=== PATIENT | male | born 1965 | race African-American/Black ===

== ENCOUNTER 2022-09-30 02:39 | Inpatient (IN) | payer MEDICAID, OTHER ==
[~2022-09-30] VITALS: Ht 185.4 cm; Wt 72.6 kg
[2022-09-30 03:22] LABS: BASOPHILS % 0.4 % (0.0-2.0); EOSINOPHILS % 0.1 % (0.0-5.0); HEMATOCRIT. 40.5 % (42.0-52.0); HEMOGLOBIN. 13.7 g/dL (14.0-18.0); LYMPHOCYTES % 22.1 % (20.0-50.0); MEAN CORPUSCULAR HEMOGLOBIN 31.3 pg (28.0-32.0); MEAN CORPUSCULAR VOLUME 92.6 fL (80.0-94.0); MONOCYTES % 6.5 % (2.0-8.0); NEUTROPHILS % 70.9 % (40.0-76.0); PLATELET 294 x1000/uL (130-400); RED BLOOD CELL COUNT 4.37 mill/uL (4.7-6.1); RED CELL DISTRIBUTION WIDTH 17.5 % (11.6-14.6)
[2022-09-30 03:26] LABS: PROTHROMBIN TIME 10.6 sec (9.6-11.0)
[2022-09-30 03:28] LABS: CHLORIDE 110 mEq/L (98-107)
[2022-09-30 03:38] LABS: ETHANOL BLOOD < 10 mg/dL
[2022-09-30] MEDS ORDERED: NITROGLYCERIN OINT 1GM/INCH UDPKT TD ONE (04:30)
[2022-09-30] MEDS ORDERED: FUROSEMIDE 40MG/4ML VIAL IV NR (04:30)
[2022-09-30] MEDS ORDERED: ONDANSETRON HCL 4MG/2ML INJ IV PRN (07:15)
[2022-09-30] MEDS ORDERED: GUAIFENESIN 200MG/10ML SUGAR FREE UDC PO PRN (07:15)
[2022-09-30] MEDS ORDERED: NITROGLYCERIN 0.4MG TABLET SL SL PRN (07:15)
[2022-09-30] MEDS ORDERED: MAGNESIUM/ALUMINUM HYDROXIDE/SIMETHICONE 30ML UDC PO PRN (07:15)
[2022-09-30] MEDS ORDERED: ACETAMINOPHEN 325MG TABLET PO PRN ×2 (07:15)
[2022-09-30] MEDS ORDERED: KETOROLAC 15MG/ML VIAL IV PRN (07:15)
[2022-09-30] MEDS ORDERED: CLONIDINE 0.1MG TABLET PO PRN (07:15)
[2022-09-30] MEDS ORDERED: NA PHOS,M-B/NA PHOS,DI-BA ENEMA 118ML PR PRN (07:15)
[2022-09-30] MEDS ORDERED: DOCUSATE SODIUM 100MG CAPSULE PO PRN (07:15)
[2022-09-30] MEDS ORDERED: IPRATROPIUM/ALBUTEROL 0.5-3(2.5)MG/3ML NEB NEB PRN (07:15)
[2022-09-30] MEDS: AMLODIPINE 10MG TABLET PO SCH (09:32)
[2022-09-30] MEDS: FUROSEMIDE 40MG/4ML VIAL IVP SCH ×2 (09:32→18:36)
[2022-09-30] MEDS: ASPIRIN 325MG EC TABLET PO SCH (09:32)
[2022-09-30] MEDS: ENOXAPARIN 40MG/0.4ML SYR SUBCUT SCH (09:32)
[2022-09-30] MEDS: FAMOTIDINE 20MG TABLET PO SCH ×2 (09:32→20:58)
[2022-09-30] MEDS: SPIRONOLACTONE 25MG TABLET PO SCH ×2 (09:33→20:59)
[2022-09-30] MEDS: LOSARTAN POTASSIUM 50 MG TABLET PO SCH (09:33)
[2022-09-30 10:18] LABS: T4 FREE 0.71 ng/dL (0.76-1.46)
[2022-09-30 13:12] LABS: HEPATITIS B SURFACE ANTIGEN NEGATIVE
[2022-09-30 14:51] LABS: VITAMIN B12 SERUM 196 pg/mL (211-911)
[2022-09-30 16:47] LABS: CREATINE KINASE MB FRACTION 2.7 ng/mL (0.5-3.6)
[2022-09-30 17:35] VITALS: BP 145/78
[2022-09-30] MEDS: CYANOCOBALAMIN 1000MCG/ML VIAL IM SCH (18:36)
[2022-09-30 20:00] VITALS: BP 131/72
[2022-09-30] MEDS ORDERED: ZOLPIDEM TARTRATE 5MG TABLET PO PRN (21:00)
[2022-10-01] VITALS: BP 134/78
[2022-10-01 00:35] LABS: CREATINE KINASE MB FRACTION 3.4 ng/mL (0.5-3.6)
[2022-10-01 04:00] VITALS: BP 144/91
[2022-10-01 08:00] VITALS: BP 139/90
[2022-10-01] MEDS: FUROSEMIDE 40MG/4ML VIAL IVP SCH ×2 (08:28→16:51)
[2022-10-01] MEDS: LOSARTAN POTASSIUM 50 MG TABLET PO SCH (08:29)
[2022-10-01] MEDS: SPIRONOLACTONE 25MG TABLET PO SCH ×2 (08:29→21:11)
[2022-10-01] MEDS: ASPIRIN 325MG EC TABLET PO SCH (08:29)
[2022-10-01] MEDS: ENOXAPARIN 40MG/0.4ML SYR SUBCUT SCH (08:29)
[2022-10-01] MEDS: CYANOCOBALAMIN 1000MCG/ML VIAL IM SCH (08:30)
[2022-10-01] MEDS: AMLODIPINE 10MG TABLET PO SCH (08:30)
[2022-10-01 08:34] LABS: BASOPHILS % 0.5 % (0.0-2.0); EOSINOPHILS % 0.3 % (0.0-5.0); HEMATOCRIT. 40.4 % (42.0-52.0); HEMOGLOBIN. 14.3 g/dL (14.0-18.0); MEAN CORPUSCULAR HEMOGLOBIN 32.6 pg (28.0-32.0); MEAN CORPUSCULAR VOLUME 91.7 fL (80.0-94.0); MEAN PLATELET VOLUME 7.1 fl (7.4-10.4); MONOCYTES % 8.7 % (2.0-8.0); NEUTROPHILS % 62.5 % (40.0-76.0); PLATELET 287 x1000/uL (130-400); RED CELL DISTRIBUTION WIDTH 16.7 % (11.6-14.6)
[2022-10-01] MEDS: FAMOTIDINE 20MG TABLET PO SCH ×2 (08:46→21:10)
[2022-10-01 09:04] LABS: CHLORIDE 104 mEq/L (98-107)
[2022-10-01 09:21] LABS: PHOSPHORUS 3.7 mg/dL (2.5-4.9)
[2022-10-01] MEDS ORDERED: FOLIC ACID 1MG TABLET PO SCH (11:00)
[2022-10-01 12:00] VITALS: BP 110/64
[2022-10-01 12:59] LABS: *AMPHETAMINES SCREEN URINE NEGATIVE (NEGATIVE); *BARBITURATES SCREEN URINE NEGATIVE (NEGATIVE); *BENZODIAZEPINES SCREEN URINE NEGATIVE (NEGATIVE); *COCAINE SCREEN URINE PRESUMTIVE POSITIVE (NEGATIVE); CANNABINOID URINE SCREEN PRESUMTIVE POSITIVE (NEGATIVE); METHADONE URINE SCREEN NEGATIVE (NEGATIVE); OPIATES URINE SCREEN NEGATIVE (NEGATIVE); PHENCYCLIDINE URINE SCREEN NEGATIVE (NEGATIVE)
[2022-10-01 16:00] VITALS: BP 125/78
[2022-10-01 20:00] VITALS: BP 109/74
[2022-10-01] MEDS ORDERED: INFLUENZA VACCINE 05/PF 0.5 ML SYRINGE IM ONE (21:00)
[2022-10-02] VITALS: BP 110/77
[2022-10-02 04:00] VITALS: BP 133/84
[2022-10-02] MEDS: FUROSEMIDE 40MG/4ML VIAL IVP SCH ×2 (06:38→17:54)
[2022-10-02 08:00] VITALS: BP 130/78
[2022-10-02] MEDS: ENOXAPARIN 40MG/0.4ML SYR SUBCUT SCH (08:00)
[2022-10-02] MEDS: LOSARTAN POTASSIUM 50 MG TABLET PO SCH (10:11)
[2022-10-02] MEDS: AMLODIPINE 10MG TABLET PO SCH (10:12)
[2022-10-02] MEDS: SPIRONOLACTONE 25MG TABLET PO SCH ×2 (10:24→20:44)
[2022-10-02] MEDS: ASPIRIN 325MG EC TABLET PO SCH (10:24)
[2022-10-02] MEDS: FAMOTIDINE 20MG TABLET PO SCH ×2 (10:24→20:45)
[2022-10-02] MEDS: CYANOCOBALAMIN 1000MCG/ML VIAL IM SCH (10:25)
[2022-10-02 11:49] VITALS: BP 118/76
[2022-10-02] MEDS: FOLIC ACID 1MG TABLET PO SCH (12:55)
[2022-10-02 16:20] VITALS: BP 124/60
[2022-10-02 20:00] VITALS: BP 109/70
[2022-10-03] VITALS: BP 116/78
[2022-10-03 04:00] VITALS: BP 128/80
[2022-10-03] MEDS: FUROSEMIDE 40MG/4ML VIAL IVP SCH (06:10)
[2022-10-03 07:59] VITALS: BP 114/80
[2022-10-03] MEDS: CYANOCOBALAMIN 1000MCG/ML VIAL IM SCH (08:02)
[2022-10-03] MEDS: LOSARTAN POTASSIUM 50 MG TABLET PO SCH (08:02)
[2022-10-03] MEDS: ENOXAPARIN 40MG/0.4ML SYR SUBCUT SCH (08:02)
[2022-10-03] MEDS: SPIRONOLACTONE 25MG TABLET PO SCH (08:03)
[2022-10-03] MEDS: FOLIC ACID 1MG TABLET PO SCH (08:03)
[2022-10-03] MEDS: FAMOTIDINE 20MG TABLET PO SCH (08:03)
[2022-10-03] MEDS: ASPIRIN 325MG EC TABLET PO SCH (08:03)
[2022-10-03] MEDS: AMLODIPINE 10MG TABLET PO SCH (08:06)
[2022-10-03] MEDS ORDERED: FOLI-43 PO (09:44)
[2022-10-03] MEDS ORDERED: FURO-151 MT (09:44)
[2022-10-03] MEDS ORDERED: ASPI-1406 MT (09:44)
[2022-10-03] MEDS ORDERED: FAMO20TA8 PO (09:44)
[2022-10-03] MEDS ORDERED: CYAN100096 MT (09:44)
[2022-10-03] MEDS ORDERED: SPIR25TA PO (09:44)
[2022-10-03] MEDS ORDERED: AMLO10TA80 PO (09:44)
[2022-10-03] MEDS ORDERED: LOSA50TA3 PO (09:44)
[2022-10-03 12:23] VITALS: BP 148/78
[2022-10-03 12:49] VITALS: BP 148/76
== END 2022-10-03 13:36 | disposition home or self-care (01) | DRG 194 ==
LOC: ER 02:39 → 7WST 05:18 → EDBEDREQTM 05:25 → EDBEDREQ 05:25
PROVIDERS: ADMIT Internal Medicine; ATTEND Internal Medicine
DX: I11.0 Hypertensive heart disease with heart failure (principal); J96.01 Acute respiratory failure with hypoxia; E44.1 Mild protein-calorie malnutrition; D51.9 Vitamin B12 deficiency anemia, unspecified; D52.9 Folate deficiency anemia, unspecified; D63.8 Anemia in other chronic diseases classified elsewhere; E88.09 Other disorders of plasma-protein metabolism, not elsewhere classified; Z20.822 Contact with and (suspected) exposure to COVID-19; I50.43 Acute on chronic combined systolic (congestive) and diastolic (congestive) heart failure; I16.1 Hypertensive emergency; J44.9 Chronic obstructive pulmonary disease, unspecified; F17.210 Nicotine dependence, cigarettes, uncomplicated; Z68.21 Body mass index [BMI] 21.0-21.9, adult; Z91.14 Patient's other noncompliance with medication regimen
CPT/HCPCS: 36415; 71045; 80053; 80061; 80305; 80320; 82550; 82553; 82607; 82746; 83036; 83540; 83550; 83735; 83880; 84100; 84439; 84443; 84484; 85025; 86705; 86709; 86803; 87340; 87426; 87804; 90686; 93005; 93306; 93970; 94640; 97162; 99285; J1650; J1885; J1940; J3420; G0480